=== PATIENT | female | born 1985 | race Caucasian/White ===

== ENCOUNTER 2016-11-24 01:50 | Inpatient (IN) | payer BC ==
[2016-11-24] MEDS ORDERED: Acetaminophen TAB* 325 MG PO PRN (11:12)
[2016-11-24] MEDS ORDERED: OXYTOCIN* 10 UNITS/ML 1 ML VIAL IM ONE (11:12)
[2016-11-24] MEDS ORDERED: Dibucaine 1% 28.35 GM TUBE PR PRN (11:12)
[2016-11-24] MEDS ORDERED: Witch Hazel PAD* JAR TOPICAL PRN (11:12)
[2016-11-24] MEDS: Ibuprofen TAB* 600 MG PO PRN ×2 (12:07→19:36)
--- NOTE | 2016-11-24 12:37 | PTEDU ---
Patient Name: SHAWANDA SCHMID SHAWANDA SCHMID selected video: Follow Me Mum: [facility] to view on 017 at 12:36:20 PM [id number]
[2016-11-24] MEDS: Docusate CAP* 100 MG PO SCH ×2 (14:30→19:36)
--- NOTE | 2016-11-24 17:26 | PTEDU ---
Patient Name: SHAWANDA SCHMID SHAWANDA SCHMID selected video: Follow Me Mum: [facility] to view on 017 at 5:25:37 PM [id number]
--- NOTE | 2016-11-24 17:46 | PTEDU ---
Patient Name: SHAWANDA SCHMID ALTAGRACIASIMONASHAWANDA selected video: BBOB: Nurturing Your Gorgeous \T\Growing Baby by to [facility] on 11/24/2016 at 5:45:30 PM from [id number]
[2016-11-25] MEDS: Docusate CAP* 100 MG PO SCH ×3 (08:29→21:27)
[2016-11-25] MEDS: Ibuprofen TAB* 600 MG PO PRN ×3 (08:29→21:25)
[2016-11-25 08:51] LABS: Hematocrit 32 % (35-47); Hemoglobin 10.7 g/dl (12.0-16.0); Mean Corpuscular HGB Conc 34 g/dl (31-36); Mean Corpuscular Hemoglobin 30 pg (27-31); Mean Corpuscular Volume 89 fL (80-97); Mean Platelet Volume 10 um3 (7.4-10.4); Red Cell Distribution Width 13 % (10.5-15); White Blood Count 15.5 10^3/ul (3.5-10.8)
[2016-11-25] MEDS ORDERED: Tetan/Diph/Pertus SYR(Tdap)* 0.5 ML SYR(BOOSTRIX) use SYR IM ONE (09:00)
[2016-11-25] MEDS ORDERED: Influenza VAC *QUAD* 2017-18* 0.5 ML SYRINGE IM ONE (09:00)
[2016-11-25] MEDS: Ferrous Gluconate TAB* 324 MG TAB PO SCH (09:00)
[2016-11-26] MEDS: Ferrous Gluconate TAB* 324 MG TAB PO SCH (00:55)
[2016-11-26] MEDS: Ibuprofen TAB* 600 MG PO PRN (05:30)
[2016-11-26 08:16] VITALS: BP 145/90
[2016-11-26] MEDS: Docusate CAP* 100 MG PO SCH (09:03)
== END 2016-11-26 12:47 | disposition home or self-care (01) | DRG 560 ==
LOC: MCHOBOUT 01:50 → MCHOB 02:20
PROVIDERS: ADMIT Midwife; ATTEND Midwife
PROC: 10E0XZZ Delivery of Products of Conception, External Approach (ICD-10-PCS; principal; 2016-11-24)
PROC: 10907ZC Drainage of Amniotic Fluid, Therapeutic from Products of Conception, Via Natural or Artificial Opening (ICD-10-PCS; 2016-11-24)
PROC: 4A1HXCZ Monitoring of Products of Conception, Cardiac Rate, External Approach (ICD-10-PCS; 2016-11-24)
PROC: 0KQM0ZZ Repair Perineum Muscle, Open Approach (ICD-10-PCS; 2016-11-24)
DX: O66.0 Obstructed labor due to shoulder dystocia (principal); O77.0 Labor and delivery complicated by meconium in amniotic fluid; O70.1 Second degree perineal laceration during delivery; O69.3XX0 Labor and delivery complicated by short cord, not applicable or unspecified; Z3A.39 39 weeks gestation of pregnancy; Z37.0 Single live birth; Z85.820 Personal history of malignant melanoma of skin
CPT/HCPCS: 36415; 85025; A9270-GY; J2590

== ENCOUNTER 2018-12-15 05:41 | Inpatient (IN) | payer BC ==
--- NOTE | 2018-12-15 06:48 | HP ---
General Information - Reason for Visit Labor - General Information Maternal Age: 33 Grav: 2 Para: 1 SAB: 0 IEA: 0 Estimated Due Date: 12/21/18 Determined By: Early Ultrasound Maternal Blood Type and Rh: O Positive - Results this Serology/RPR Result: Non-Reactive Rubella Result: Immune HBsAg Result: Negative HIV Result: Negative GBS Culture Result: Negative Past Medical History Delivery History: Hx Complicated Vaginal Delivery - 11/24/16 SVB with shoulder dystocia resolved with Emily, 3rd degree laceration Pertinent Past Medical History: See Records Past Medical History Comment: Melanoma hx urinary incontinence Pertinent Past Surgical History: See Records - Bunionectomies 2011; Melanoma removal 2012; wisdom teeth 2013; benign mole removals Family History Comment: HTN PCOS Skin cancer COPD pancreatic cancer - Antepartal Records Antepartal Records: Reviewed, Uncomplicated Review of Systems Constitutional: Uncomfortable CV Complaint: No Respiratory: Shortness of Breath: No Genitourinary: Bleeding, Leaking Fluid Musculoskeletal: Contractions Exam Allergies/Adverse Reactions: Allergies No Known Allergies Allergy (Verified 12/15/18 06:29) - Measurements Height: 5 ft 4 in Weight: 133 lb Weight in lbs: 133.682539 Body Mass Index (BMI): 22.8 Pre- Weight: 114 lb 15.996 oz Weight Gained This : 18.000 lbs and 0.004 ozs - Abdominal Exam Abdomen Exam: Non-Tender Targeted Exam Findings Cervical Exam: 9cm Effacement: 100% Station: +1 Presenting Part: Vertex Membrane Status: Questionable SROM Bleeding/Discharge: Bloody Show EFM Findings - External Monitor Findings Baseline Heart Rate: 135 External Monitor Findings: Accelerations Present, No Pattern of Variable or Late Decelerations, Variability Moderate Contractions: Regular, Strong, 45-90 Seconds Contraction Frequency: Q2 Assessment/Plan - Assessment IUP in active labor @ 39+1, possible SROM with small amount of leaking fluid, blood tinged. No evidence metabolic acidemia. - Plan Plan: Admit - Anticipate Vaginal Delivery Plan Comment: Precipitous delivery, urge to push at arrival to patient room. - Date/Time of Admission Date of Admission: 12/15/18 Time of Admission: 05:50
[2018-12-15] MEDS ORDERED: Glycerin ADULT SUPP PR PRN (07:03)
[2018-12-15] MEDS ORDERED: Ibuprofen TAB* 600 MG PO PRN (07:03)
[2018-12-15] MEDS ORDERED: Dibucaine 1% 28.35 GM TUBE PR PRN (07:03)
[2018-12-15] MEDS ORDERED: Acetaminophen TAB* 325 MG PO PRN (07:03)
[2018-12-15] MEDS ORDERED: OXYTOCIN* 10 UNITS/ML 1 ML VIAL IM ONE (07:03)
[2018-12-15] MEDS ORDERED: Witch Hazel PAD* JAR TOPICAL PRN (07:03)
--- NOTE | 2018-12-15 07:06 | PROCNOTE ---
[facility] OB: Delivery Note - Delivery A Date of : 12/15/18 Time of : 06:02 Sex: Female Score 1 Minute: 8 Score 5 Minutes: 9 Gestational Age in Weeks and Days at Delivery: 39 Weeks and 1 Days Delivery Method: Spontaneous Vaginal Labor: Spontaneous Did Patient attempt ?: N/A, No Previous Amniotic Fluid: Clear Estimated Blood Loss: 200 Anesthesia/Analgesia: None Delivered By: Keke Callahan - Nursery Level of Nursery: Regular/Bedside - Perineum Perineal Injury: Abrasion Only - Not Repaired, 1st Degree - Diffuse perineal abrasion, not suturable Perineal Repair: None - Events Delivery Events of Note: Precipitous Delivery - Additional Delivery Notes Additional Delivery Notes: Patient is 33 no now @ 39+1 weeks gestation. She awoke with mild contractions approx 0400 and noticed leaking fluid, clear with pink tinge. Contraction intensity increased quickly and arrived @ L&D with urge to push. Length of labor 2'07", pushed 11 min. Baby born @ 0602 with intact fluid filled membrane over head, shoulders followed with maternal efforts. Delivered to maternal abdomen with spontaneous cry, apgars 8, 9. Cord doubly clamped and cut by FOB once pulsations ceased. Placenta delivered in Stella presentation with gentle cord traction @ 0607. Noted to have intact membranes, 3VC. Fundus firm to massage. Baby at breast and initiating immediately. Both stable.
[2018-12-15] MEDS ORDERED: Lactated Ringers 1000 ML Bag* 1,000 ML IV SCH (08:00)
[2018-12-15] MEDS: Docusate CAP* 100 MG PO SCH ×2 (09:00→14:55)
[2018-12-16] MEDS: Docusate CAP* 100 MG PO SCH (04:29)
[2018-12-16 06:56] LABS: ABS Basophils 0.1 10^3/ul (0-0.2); ABS Lymphocytes 2.2 10^3/ul (1.0-4.8); ABS Monocytes 0.8 10^3/ul (0-0.8); ABS Neutrophils 10.7 10^3/ul (1.5-7.7); Eosinophil % 0.3 %; Hematocrit 36 % (35-47); Hemoglobin 12.1 g/dL (12.0-16.0); Lymphocyte % 15.6 %; Mean Corpuscular HGB Conc 33 g/dL (31-36); Mean Corpuscular Hemoglobin 29 pg (27-31); Mean Corpuscular Volume 86 fL (80-97); Mean Platelet Volume 9.4 fL (7.4-10.4); Nucleated Red Blood Cells % 0.1; Platelet Count 198 10^3/uL (150-450); Red Blood Count 4.23 10^6 /uL (3.70-4.87); Red Cell Distribution Width 14 % (10-15); White Blood Count 13.8 10^3/uL (3.5-10.8)
[2018-12-16] MEDS ORDERED: Ferrous Gluconate TAB* 324 MG TAB PO SCH (09:00)
[2018-12-16] MEDS ORDERED: Measles, Mumps,Rubella VACC* 0.5 ML/VIAL SUBCUT ONE (09:00)
[2018-12-16 12:18] VITALS: BP 124/85
== END 2018-12-16 11:57 | disposition home or self-care (01) | DRG 560 ==
LOC: MCHOBOUT 05:41 → MCHOB 05:47
PROVIDERS: ADMIT Midwife; ATTEND Midwife
PROC: 10E0XZZ Delivery of Products of Conception, External Approach (ICD-10-PCS; principal; 2018-12-15)
DX: O62.3 Precipitate labor (principal); Z37.0 Single live birth; O70.0 First degree perineal laceration during delivery; Z3A.39 39 weeks gestation of pregnancy
CPT/HCPCS: 36415; 85025; A9270-GY

== ENCOUNTER 2018-12-21 10:48 | Emergency (ER) | payer BC ==
[2018-12-21] MEDS ORDERED: NS 0.9% 1000 ML** 1,000 ML IV ONE (11:02)
--- NOTE | 2018-12-21 11:03 | ED ---
Abdominal Pain/Female - HPI Summary HPI Summary: 33 year old female reports to [facility] by EMS with complaints of heavy vaginal bleeding 6 days post-, starting this morning. Patient reports being very stressed yesterday secondary to taking care of her two kids. She woke up to use the restroom this morning; when she stood up she noticed heavy bleeding. She had no complications during , GPA 2.2.0. Patient denies heart palpitations. - History of Current Complaint Stated Complaint: VAGINAL BLEEDING PER EMS Hx Obtained From: Patient Hx Last Menstrual Period: on the nuva ring - does not get periods regularly ( just leaves ring in) ?: No Onset/Duration: Sudden Onset, Lasting Minutes, Still Present Timing: Constant Severity Initially: Moderate Severity Currently: Moderate Location: Groin Radiates: No Aggravating Factor(s): Nothing Alleviating Factor(s): Nothing Associated Signs and Symptoms: Positive: Vaginal Bleeding Allergies/Adverse Reactions: Allergies Allergy/AdvReac Type Severity Reaction Status Date / Time No Known Allergies Allergy Verified 12/15/18 06:29 PMH/Surg Hx/FS Hx/Imm Hx Previously Healthy: Yes Endocrine/Hematology History: Denies: Hx Sickle Cell Disease Cardiovascular History: Denies: Other Cardiovascular Problems/Disorders Respiratory History: Denies: Other Respiratory Problems/Disorders GI History: Denies: Other GI Disorders History: Denies: Other Problems/Disorders Musculoskeletal History: Reports: Hx Arthritis - IN LEFT FOOT WHERE BUNIONECTOMY WAS REMOVED Sensory History: Denies: Hx Contacts or Glasses, Hx Hearing Aid Opthamlomology History: Denies: Hx Contacts or Glasses Neurological History: Denies: Other Neuro Impairments/Disorders - Surgical History Surgery Procedure, Year, and Place: BUNIONECTOMY - [place] [facility] [place]x Anesthesia Reactions: No - NAUSEA Infectious Disease History: Denies: Traveled Outside the [place] in Last 30 Days - Family History Known Family History: Positive: Hypertension, Other - skin cancer, COPD - Social History Alcohol Use: None Alcohol Amount: 1/month Substance Use Type: Reports: None Smoking Status (MU): Never Smoked Tobacco Review of Systems Negative: Fever Negative: Palpitations Positive: other - vaginal bleeding All Other Systems Reviewed And Are Negative: Yes Physical Exam - Summary Physical Exam Summary: VITAL SIGNS: Reviewed and stable. GENERAL: Patient is a well-developed and nourished female who is lying comfortable in the stretcher. Patient is not in any acute respiratory distress. Patient is crying secondary to stress. HEAD AND FACE: Normocephalic and atraumatic. EYES: PERRLA, EOMI x 2, No injected conjunctiva. EARS: Hearing grossly intact. Ear canals and tympanic membranes are WNL. MOUTH: Oropharynx within normal limits. NECK: Supple, trachea is midline, no adenopathy, no JVD. CHEST: Symmetric, no tenderness at palpation. LUNGS: Clear to auscultation bilaterally. No wheezing or crackles. CVS: RRR, S1 and S2 present, no murmurs or gallops appreciated. ABDOMEN: Soft, tenderness in lower abdomen. No signs of distention. Positive bowel sounds. No rebound, no guarding, and no masses palpated. No abdominal bruit or pulsations. EXTREMITIES: FROM in all major joints, no edema, no cyanosis or clubbing. NEURO: Alert and oriented x 3. No acute neurological deficits. Speech is normal. SKIN: Dry and warm. 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 External genitalia: within normal limits. No rashes, lesions or ecchymosis. Speculum exam: vaginal dye with no lesions, masses, or rashes. Positive mild amount of blood. Cervix normal. No CMTs. No adnexal masses. Triage Information Reviewed: Yes Vital Signs Reviewed: Yes Procedures - Sedation Patient Received Moderate/Deep Sedation with Procedure: No Diagnostics - Laboratory Result Diagrams: 12/21/18 11:11 12/21/18 11:11 Lab Statement: Any lab studies that have been ordered have been reviewed, and results considered in the medical decision making process. - Ultrasound Pelvis US Ultrasound Interpretation Completed By: Radiologist Summary of Ultrasound Findings: Pelvis US shows heterogeneous endometrium with small amount of fluid likely representing residual fluid. No definite retained products of conception are noted. An ED physician has reviewed this report. Abdominal Pain Fem Course/Dx - Course Course Of Treatment: 33 y/o female c/o of vaginal bleeding 6 days ago. Blood work without any significant abnormality. Pelvic exam she has some pronounced blood and cervix no active bleeding. Transabdominal ultrasound impression: Heterogeneous endometrium with a small amount of fluid likely representing residual fluid. No definite became pulseless of conception some noted. I discussed my physical exam findings and test results with Dr. Gallegos from [employer] and at this time he recommends for the patient to be discharged home and follow-up with his office or Ms. Callahan the enterprise resource analyst. I discussed all the findings and test results with the patient. Patient was instructed to return to the emergency room immediately if any of the symptoms return worsens. Plan of care was discussed with the patient and understands and agrees. All questions were answered at patient satisfaction. There were no further complaints or concerns. Lung exam before discharge: CTA B/L. Good air exchange. No wheezing or crackles heard. CVS: S1 and S2 present. No murmurs appreciated. Patient is alert and oriented x 3. Patient is hemodynamically stable. Patient will be discharged home with follow up PCP in the next 2-3 days - Diagnoses Provider Diagnoses: hemorrhage of vagina - Provider Notifications Discussed Care Of Patient With: Gregory Lynn Time Discussed With Above Provider: 12:38 Instructed by Provider To: Other - I talked to Dr. Lynn at 12:38. He recommended discharging the patient home. She should follow up with him or Dr. Callahan in 2-3 days. Discharge ED - Sign-Out/Discharge Documenting (check all that apply): Patient Departure - discharge - Discharge Plan Condition: Stable Disposition: HOME Patient Education Materials: Bleeding (ED) Referrals: Salome Ho DO [Primary Care Provider] - Gregory Lynn MD [Medical Doctor] - Keke Callahan CNM [Certified Nurse Solution Manager] - Additional Instructions: Follow up with Dr. Lynn or Dr. Callahan in 2-3 days. Return to the ED if you experience new or worsened symptoms. - Billing Disposition and Condition Condition: STABLE Disposition: Home - Attestation Statements Document Initiated by Nileibe: Yes Documenting Scribe: Cuba Mccarty Provider For Whom Payton is Documenting (Include Credential): Steve Pro MD Scribe Attestation: Cuba Jameson, nileibed for Steve Pro MD on 12/21/18 at 7599. Scribe Documentation Reviewed: Yes Provider Attestation: The documentation as recorded by the Cuba wallis accurately reflects the service I personally performed and the decisions made by me, Steve Pro MD Status of Scribe Document: Viewed
[2018-12-21 11:25] LABS: ABS Basophils 0.1 10^3/ul (0-0.2); ABS Eosinophils 0.1 10^3/ul (0-0.6); ABS Lymphocytes 1.6 10^3/ul (1.0-4.8); ABS Monocytes 0.5 10^3/ul (0-0.8); ABS Neutrophils 6.4 10^3/ul (1.5-7.7); Eosinophil % 1.2 %; Hematocrit 40 % (35-47); Hemoglobin 13.4 g/dL (12.0-16.0); Lymphocyte % 18.6 %; Mean Corpuscular HGB Conc 34 g/dL (31-36); Mean Corpuscular Hemoglobin 29 pg (27-31); Mean Corpuscular Volume 87 fL (80-97); Mean Platelet Volume 8.3 fL (7.4-10.4); Platelet Count 303 10^3/uL (150-450); Red Cell Distribution Width 14 % (10-15); White Blood Count 8.7 10^3/uL (3.5-10.8)
[2018-12-21 11:55] LABS: Albumin 3.8 g/dL (3.2-5.2); Albumin/Globulin Ratio 1.4 (1-3); BUN/Creatinine Ratio 31.3 (8-20); C Reactive Protein 5.82 mg/L (<8.01); Calcium 9.1 mg/dL (8.6-10.3); EGFR African American 130.1 (>60); EGFR Non-African American 107.5 (>60); Globulin 2.8 g/dL (2-4); Potassium 3.9 mmol/L (3.5-5.0); Total Bilirubin 0.4 mg/dL (0.2-1.0); Total Protein 6.6 g/dL (6.4-8.9)
[2018-12-21] MEDS ORDERED: Lactated Ringers 1000 ML Bag* 1,000 ML IV SCH (12:00)
[2018-12-21 13:16] VITALS: BP 140/90
== END 2018-12-21 13:00 | disposition home or self-care (01) ==
LOC: ED 10:48
DX: O72.1 Other immediate postpartum hemorrhage (principal)
CPT/HCPCS: 36415; 76856; 80053; 83690; 85025; 86140; 86850; 86900; 86901; 96360; 99284

== ENCOUNTER 2018-12-21 15:00 | Observation (INO) | payer BC ==
[2018-12-21 15:35] LABS: ABS Basophils 0.1 10^3/ul (0-0.2); ABS Eosinophils 0.1 10^3/ul (0-0.6); ABS Monocytes 0.5 10^3/ul (0-0.8); ABS Neutrophils 7.3 10^3/ul (1.5-7.7); Eosinophil % 0.6 %; Hematocrit 40 % (35-47); Hemoglobin 13.5 g/dL (12.0-16.0); Lymphocyte % 20.2 %; Mean Corpuscular HGB Conc 34 g/dL (31-36); Mean Corpuscular Hemoglobin 29 pg (27-31); Mean Corpuscular Volume 86 fL (80-97); Mean Platelet Volume 8.1 fL (7.4-10.4); Platelet Count 303 10^3/uL (150-450); Red Blood Count 4.62 10^6 /uL (3.70-4.87); Red Cell Distribution Width 14 % (10-15)
--- NOTE | 2018-12-21 15:39 | ED ---
GI/ HPI - HPI Summary HPI Summary: 33 year old female returns to the ED with complaints of intense bleeding from her vagina. The bleeding worsened from this morning, when she presented to [facility] and was discharged home. 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 Patient reports no pain. She is 6 days post-. Patient reports being very stressed yesterday secondary to taking care of her two kids. She woke up to use the restroom this morning; when she stood up she noticed heavy bleeding. She had no complications during , GPA 2.2.0 patient denies heart palpitations. - History of Current Complaint Chief Complaint: EDVaginalBleeding Stated Complaint: BLEEDING PER PT Hx Obtained From: Patient Hx Last Menstrual Period: on the nuva ring - does not get periods regularly ( just leaves ring in) Onset/Duration: Started Hours Ago, Still Present Timing: Constant Severity: Severe Current Severity: Severe Vaginal Bleeding Description: Dark Red Pain Intensity: 0 Additional Signs & Symptoms: Positive: Vaginal Bleeding Aggravating Factor(s): Nothing Alleviating Factor(s): Nothing - Allergy/Home Medications Allergies/Adverse Reactions: Allergies Allergy/AdvReac Type Severity Reaction Status Date / Time No Known Allergies Allergy Verified 12/15/18 06:29 PMH/Surg Hx/FS Hx/Imm Hx Previously Healthy: Yes Endocrine/Hematology History: Denies: Hx Sickle Cell Disease Cardiovascular History: Denies: Other Cardiovascular Problems/Disorders Respiratory History: Denies: Other Respiratory Problems/Disorders GI History: Denies: Other GI Disorders History: Denies: Other Problems/Disorders Musculoskeletal History: Reports: Hx Arthritis - IN LEFT FOOT WHERE BUNIONECTOMY WAS REMOVED Sensory History: Denies: Hx Contacts or Glasses, Hx Hearing Aid Opthamlomology History: Denies: Hx Contacts or Glasses Neurological History: Denies: Other Neuro Impairments/Disorders - Surgical History Surgery Procedure, Year, and Place: BUNIONECTOMY - 2011 [facility] [place] Hx Anesthesia Reactions: No - NAUSEA Infectious Disease History: No Infectious Disease History: Denies: Traveled Outside the [place] in Last 30 Days - Family History Known Family History: Positive: Hypertension, Other - skin cancer, COPD - Social History Alcohol Use: None Alcohol Amount: 1/month Substance Use Type: Reports: None Smoking Status (MU): Never Smoked Tobacco Review of Systems Negative: Fever Positive: other - vaginal bleeding All Other Systems Reviewed And Are Negative: Yes Physical Exam - Summary Physical Exam Summary: VITAL SIGNS: Reviewed and stable. GENERAL: Patient is a well-developed and nourished female who is lying comfortable in the stretcher. Patient is not in any acute respiratory distress.Patient is crying secondary to stress. HEAD AND FACE: Normocephalic and atraumatic. EYES: PERRLA, EOMI x 2, No injected conjunctiva. EARS: Hearing grossly intact. Ear canals and tympanic membranes are WNL. MOUTH: Oropharynx within normal limits. NECK: Supple, trachea is midline, no adenopathy, no JVD. CHEST: Symmetric, no tenderness at palpation. LUNGS: Clear to auscultation bilaterally. No wheezing or crackles. CVS: RRR, S1 and S2 present, no murmurs or gallops appreciated. ABDOMEN: Soft, tenderness in lower abdomen. No signs of distention. Positive bowel sounds. No rebound, no guarding, and no masses palpated. No abdominal bruit or pulsations. EXTREMITIES: FROM in all major joints, no edema, no cyanosis or clubbing. NEURO: Alert and oriented x 3. No acute neurological deficits. Speech is normal. SKIN: Dry and warm. Triage Information Reviewed: Yes Vital Signs On Initial Exam: Initial Vitals Temp Pulse Resp BP Pulse Ox 99.7 F 120 20 161/121 94 12/21/18 15:01 12/21/18 15:01 12/21/18 15:01 12/21/18 15:01 12/21/18 15:01 Vital Signs Reviewed: Yes Procedures - Sedation Patient Received Moderate/Deep Sedation with Procedure: No Diagnostics - Vital Signs Vital Signs Temp Pulse Resp BP Pulse Ox 12/21/18 15:01 99.7 F 120 20 161/121 94 - Laboratory Result Diagrams: 12/22/18 05:12 12/21/18 15:26 Lab Statement: Any lab studies that have been ordered have been reviewed, and results considered in the medical decision making process. GIGU Course/Dx - Course Assessment/Plan: Patient is a 33-year-old female who presents to the ED with a chief complaint of vaginal bleeding. Dr. Martinez came and assessed the patient. He evacuated some blood clots and the cervix. He requested to give Pitocin. After these medications the symptoms improved. He requested to observe the patient and discharged the patient home. However patient has a near syncope episode and hypotensive. Dr. Martinez reassess patient and admitted the patient to his services. - Diagnoses Provider Diagnoses: Vaginal bleeding Discharge ED - Sign-Out/Discharge Documenting (check all that apply): Patient Departure - discharge - Discharge Plan Condition: Stable Disposition: ADMITTED TO [facility] - Billing Disposition and Condition Condition: STABLE Disposition: Admitted to [facility] - Attestation Statements Document Initiated by Scribe: Yes Documenting Scribe: Cuba Mccarty Provider For Whom Payton is Documenting (Include Credential): Steve Pro MD. Scribe Attestation: Cuba Jameson, scribed for Steve Pro MD. on 12/22/18 at 2117. Scribe Documentation Reviewed: Yes Provider Attestation: The documentation as recorded by the scribe, Cuba Mccarty accurately reflects the service I personally performed and the decisions made by , Steve Pro MD. Status of Scribe Document: Viewed
[2018-12-21] MEDS ORDERED: Oxytocin in LR* 20 UNITS/1,000 ML BAG IVPB SCH (16:00)
[2018-12-21 16:13] LABS: BUN/Creatinine Ratio 29.5 (8-20); Calcium 8.9 mg/dL (8.6-10.3); EGFR African American 137.5 (>60); EGFR Non-African American 113.7 (>60); Potassium 3.8 mmol/L (3.5-5.0)
[2018-12-21] MEDS ORDERED: NS 0.9% 1000 ML** 1,000 ML IV ONE (19:02)
[2018-12-21] MEDS ORDERED: Ibuprofen TAB* 600 MG PO PRN (19:31)
[2018-12-21] MEDS ORDERED: Acetaminophen TAB* 325 MG PO PRN (19:32)
--- NOTE | 2018-12-21 19:49 | CONS ---
CC: [facility] CONSULTATION REPORT: DATE OF CONSULT: 12/21/18 TIME OF CONSULTATION: 4 p.m. HISTORY OF PRESENT ILLNESS: Ms. Morales is a 33-year-old 2, para 2-0-0-2 , who is post spontaneous vaginal delivery without complications on 12/15/18. She was discharged home after her delivery without any incidents. Today, she called her punch machine operator with complaints of vaginal bleeding and was seen in the emergency room on 12/21/18 in the morning at around 10 to 11 a.m. She underwent an evaluation by the emergency room physician. She had stable vital signs, complete blood cell count, complete metabolic panel, which were within normal limits with a hemoglobin of 13.4. She underwent a pelvic exam and was not actively bleeding; therefore, she was discharged home. Three hours after discharge the patient arrived at home, she called her punch machine operator again with similar complaints and she was asked to go to the office. The patient came to the emergency room and I was called in consultation to see the patient. In the emergency room, the patient stated that once she arrived at home she started and she passed a large clot vaginally. OBSTETRICAL HISTORY: 1 full term spontaneous vaginal delivery for her first without complications and she is post spontaneous vaginal delivery on 12/15/18. GYNECOLOGIC HISTORY: Unremarkable. PAST MEDICAL HISTORY: None. PAST SURGICAL HISTORY: None. MEDICATIONS: She is currently only taking vitamins. ALLERGIES: She has no known drug allergies. SOCIAL HISTORY: She denied any cigarette, alcohol or drug use. REVIEW OF SYMPTOMS: The patient denied any fevers, chills, or constitutional signs or symptoms. She denied chest pain, shortness of breath. No nausea or vomiting. No abdominal pain. No urinary signs or symptoms other than vaginal bleeding as noted in the history of present illness. PHYSICAL EXAM: Her vital signs in the emergency room when I arrived, her blood pressure was 148/96, heart rate of 83, temperature had been 99.7, respiratory rate of 20 with a pulse ox of 100% on room air. She was alert, awake, in no apparent distress, in the emergency room bed. On physical exam, she had lungs that were clear to auscultation bilaterally. Her heart showed a regular rate and rhythm with no abnormal heart sounds. Her abdomen was soft, nondistended, nontender. Her uterus was firm below the umbilicus. I did a speculum exam and the speculum exam revealed about 250 cc of clot that was sitting in the vagina. This was removed and she was noted to have a clot at the external cervical os , which I grasped with a sterile ring forceps and I was able to remove the clot from the cervix. I performed a bimanual pelvic exam. The cervix was noted to be about 2 cm dilated. There was no clot. The uterus was firm, nontender, anteverted and it was about 6 cm below the umbilicus consistent with normal post delivery uterine involution. LABORATORY DATA: She had a repeat complete blood cell count and a repeat comprehensive metabolic panel, both were within normal limits and her hemoglobin was actually 13.5 similar to her hemoglobin on presentation at 11 a.m. EMERGENCY DEPARTMENT COURSE: The patient was observed over 2 hours in the emergency room. She received 1 L of IV crystalloid fluid with 20 units of Pitocin and she started . When I returned to the emergency room, I reexamined the patient. Her abdomen was soft and nontender. Uterus that was soft, firm about 6 cm below the umbilicus and external vaginal exam revealed no active bleeding. PLAN: I had a conversation with the patient and family regarding her bleeding and most likely diagnosis. We also discussed bleeding precautions and when to call if she feels she had any complications. The patient decided to go home. I had offered observation; however, she declined. She was therefore being discharged home. She is to follow with her doctors at [facility] this coming Monday. She was given instructions for abnormal bleeding and followup. DISCHARGE DIAGNOSIS: Lochial block of the cervix with passage of blood clots, stable hemoglobin. The patient's presentation is not consistent with an episode of hemorrhage. [id number]/[facility] #: [id number] [facility] CENTERKush
[2018-12-21] MEDS ORDERED: Lactated Ringers 1000 ML Bag* 1,000 ML IV SCH (20:00)
[2018-12-21] MEDS ORDERED: Misoprostol TAB* 200 MCG PR ONE (20:13)
[2018-12-21] MEDS ORDERED: ceFOXitin 2 GM IVPREMIX* 2 GM/50 ML BAG IVPB ONE (20:45)
[2018-12-21 20:52] LABS: Hematocrit 30 % (35-47); Hemoglobin 10.3 g/dL (12.0-16.0)
--- NOTE | 2018-12-21 21:15 | HP ---
History of Present Illness - History of Present Illness Reason for Visit: vaginal bleeding History of Present Illness: 33 y/o s/p uncomplicated on 12/15/2018 presents today with bleeding that increased starting this AM. Since delivery her bleeding was minimal up until today. - Past Medical History Grav: 2 Para: 2 - Past Surgical History Past Surgical History: None - Past Family History Family History: None - Past Social History Smoke: No Drugs: None Lives: With Family Domestic Violence: Negative Review of Systems - Review of Systems Constitutional: Positive: Weakness Cardiovascular: Positive: Light Headedness - Medications/Allergies Allergies/Adverse Reactions: Allergies Allergy/AdvReac Type Severity Reaction Status Date / Time No Known Allergies Allergy Verified 12/15/18 06:29 Medications: Current Medications Acetaminophen (Tylenol Tab*) 650 mg PO Q6H PRN PRN Reason: PAIN-MILD/TEMP >/= 100.4 Oxytocin (Pitocin In Lr*) 20 units in 1,000 mls @ 0 mls/hr IVPB .PER PARAMETERS ANNE MARIE; Protocol Last Admin: 12/21/18 16:09 Dose: 1,000 mls/hr Lactated Ringer's (Lactated Ringers 1000 Ml Bag*) 1,000 mls @ 125 mls/hr IV .INITIAL RATE [facility] Cefoxitin Sodium (Mefoxin 2gm Ivpremix*) 2 gm in 50 mls @ 100 mls/hr IVPB ED ONCE ONE Stop: 12/21/18 21:14 Ibuprofen (Motrin Tab*) 600 mg PO Q6H PRN PRN Reason: PAIN - MILD Exam - Exam Vital Signs: Vital Signs (72 hours) 12/21/18 12/21/18 12/21/18 15:01 15:38 15:39 Temperature 99.7 F Pulse Rate 120 101 101 Respiratory 20 Rate Blood Pressure 161/121 138/99 (mmHg) O2 Sat by Pulse 94 98 99 Oximetry 12/21/18 12/21/18 12/21/18 16:00 16:09 16:17 Temperature Pulse Rate 94 91 101 Respiratory Rate Blood Pressure 155/96 158/95 (mmHg) O2 Sat by Pulse 99 97 97 Oximetry 12/21/18 12/21/18 12/21/18 16:32 16:47 17:00 Temperature Pulse Rate 83 97 94 Respiratory Rate Blood Pressure 148/96 158/99 (mmHg) O2 Sat by Pulse 99 98 99 Oximetry 12/21/18 12/21/18 12/21/18 17:02 17:17 17:32 Temperature Pulse Rate 91 90 93 Respiratory Rate Blood Pressure 147/94 145/102 150/89 (mmHg) O2 Sat by Pulse 98 98 97 Oximetry 12/21/18 12/21/18 12/21/18 18:05 18:06 18:57 Temperature Pulse Rate 118 115 81 Respiratory Rate Blood Pressure 111/85 112/85 (mmHg) O2 Sat by Pulse 97 97 98 Oximetry 12/21/18 12/21/18 12/21/18 19:00 19:02 19:17 Temperature Pulse Rate 85 89 86 Respiratory Rate Blood Pressure 128/90 141/90 (mmHg) O2 Sat by Pulse 99 99 100 Oximetry 12/21/18 12/21/18 12/21/18 19:33 19:48 19:49 Temperature Pulse Rate 94 97 95 Respiratory Rate Blood Pressure 141/87 135/87 142/93 (mmHg) O2 Sat by Pulse 100 99 99 Oximetry 12/21/18 12/21/18 12/21/18 20:00 20:03 20:06 Temperature Pulse Rate 107 106 113 Respiratory Rate Blood Pressure 131/92 157/106 (mmHg) O2 Sat by Pulse 98 98 98 Oximetry 12/21/18 12/21/18 12/21/18 20:18 20:25 20:35 Temperature Pulse Rate 116 113 122 Respiratory 23 Rate Blood Pressure 160/100 162/103 165/100 (mmHg) O2 Sat by Pulse 99 99 99 Oximetry 12/21/18 20:49 Temperature Pulse Rate 120 Respiratory 20 Rate Blood Pressure 140/100 (mmHg) O2 Sat by Pulse 97 Oximetry General: Alert, Oriented x3, Cooperative HEENT: Atraumatic Lungs: Clear to auscultation, Normal air movement Cardiovascular: Other - Slight tachycardia, regular rhythm Abdomen: Soft, No tenderness, No hepatospenomegaly, No masses, Other - Intermittent heavy vaginal bleeding, fundus firm below the umbilicus Extremities: No clubbing, No cyanosis, No edema, Normal pulses Skin: No rashes Neurological: Normal speech Psych/Mental Status: Mental status NL Assessment/Plan - Assessment/Plan Assessment: 33 y/o with increased vaginal bleeding s/p on 12/15/2018. Bleeding improved after evacuation and pitocin on initial presentation. Called by nursing shortly thereafter to re-assess as pt began bleeding again. Approximately 500cc of blood evacuated and 600mcg Misoprostol placed intravaginally. Hct changed from 40 to 30 over course of hospitalization today. Suspect small retained POC's, at this point given continued bleeding, recommend proceed to OR for Suction dilation and currettage. Cefoxitin 2g now for infection ppx given multiple exams Pt consented at bedside Anesthesia notified OR notified. T&S up to date Plan: Proceed to OR for Suction D&C OR Staff and Anesthesia Aware Pt consented Exam to be performed under USN guidance with Dr. Lynn
[2018-12-21] MEDS ORDERED: fentaNYL* 50 MCG/ML 2 ML VIAL (100 MCG VIAL) ONE (21:39)
[2018-12-21] MEDS ORDERED: Propofol* 10 MG/ML 20 ML BTL ONE (21:39)
[2018-12-21] MEDS ORDERED: Ondansetron INJ* 2 MG/ML VIAL ONE (21:39)
[2018-12-21] MEDS ORDERED: Lidocaine 2% PF * 5 ML VIAL ONE (21:39)
[2018-12-21] MEDS ORDERED: Succinylcholine* 20 MG/ML 10 ML VIAL ONE (21:39)
[2018-12-21] MEDS ORDERED: Phenylephrine 40 MCG/ML SYRINGE ONE (21:40)
[2018-12-21] MEDS ORDERED: Famotidine IV* 10 MG/ML 2 ML (20 mg) ONE (21:46)
[2018-12-21] MEDS ORDERED: KETAMINE HCL* 50 MG/ML 10 ML VIAL ONE (21:51)
[2018-12-21] MEDS ORDERED: ceFOXitin 2 GM IVPREMIX* 2 GM/50 ML BAG ONE (21:53)
[2018-12-21] MEDS ORDERED: Silver Nitrate/Potassium Nitr* 1 EA STICK ONE (22:33)
[2018-12-21] MEDS ORDERED: DiMENhydriNATE IV* 50 MG/ML VIAL IV PUSH PRN (22:51)
[2018-12-21] MEDS ORDERED: Ondansetron INJ* 2 MG/ML VIAL IV PRN (22:51)
[2018-12-21] MEDS ORDERED: Naloxone* 0.4 MG/ML 1 ML VIAL IV PRN (22:51)
[2018-12-21] MEDS ORDERED: fentaNYL* 50 MCG/ML 2 ML VIAL (100 MCG VIAL) IV PRN (22:51)
[2018-12-21 23:21] LABS: Hematocrit 23 % (35-47); Hemoglobin 7.8 g/dL (12.0-16.0)
[2018-12-22 05:40] LABS: ABS Monocytes 0.2 10^3/ul (0-0.8); ABS Neutrophils 9.9 10^3/ul (1.5-7.7); Hematocrit 22 % (35-47); Hemoglobin 7.5 g/dL (12.0-16.0); Lymphocyte % 8.9 %; Mean Corpuscular HGB Conc 34 g/dL (31-36); Mean Corpuscular Hemoglobin 29 pg (27-31); Mean Corpuscular Volume 87 fL (80-97); Mean Platelet Volume 8.4 fL (7.4-10.4); Platelet Count 252 10^3/uL (150-450); Red Blood Count 2.54 10^6 /uL (3.70-4.87); Red Cell Distribution Width 14 % (10-15)
[2018-12-22 12:10] VITALS: BP 131/81
--- NOTE | 2018-12-22 12:49 | PN ---
Progress Note - Progress Note Date of Service: 12/22/18 SOAP: Subjective: [Pt is POD#1 s/p suction D&C for delayed post hemorrhage. Doing well this AM. Reports feeling much better. Bleeding has been scant to none overnight. Pt reports feeling slightly dizzy overnight, but much better this AM and no longer dizzy, lightheaded. Denies palpitations, cp, sob. Has had a good breakfast and tolerated well. Reports voiding spontaneously with good UOP. Has been up and ambulated in hallway and reports feeling tired, but otherwise asymptomatic.] Objective: [T98.5 RR 19 Pulse 117 BP 131/80 O2% 98] Gen: nad, aaox3 CV: slight tachycardia on palpation, regular rhythm Pulm: CTABL Abd: soft, nd, nttp, no rebound, no guarding, fundus firm well below umbilicus : bleeding scant to none on pad this AM Ext: warm, nttp, negative jesusita's Psych: euthymic Assessment: [POD#1 s/p Suction D&C for delayed PPH - AVSS, afebrile, hemodynamically stable - Anemia noted Hct 40 on admission to 22. Stable from 23 to 22 overnight. Bleeding has resolved. Pt does have mild tachycardia, but otherwise is asymptomatic. Offered transfusion and discussed risks versus benefits, pt would like to avoid transfusion at this time. Agrees to start Fe+Vitamin C and Colace BID on discharge. - Pt received Cefoxitin 2 grams in OR at time of suctions D&C this was post hemorrhage. Would like to avoid additional antibiotics. Afebrile, no indication for further Abx ppx at this time. - Anemia, bleeding, infection and pain precautions carefully reviewed. Plan: [- Stable for discharge home - F/U in office in 1 week for Post op Check Lc Mar, OBGYN]]
--- NOTE | 2018-12-23 00:19 | OP ---
OPERATIVE REPORT: DATE OF OPERATION: 12/21/18 DATE OF : 87 SURGEON: Nolberto Mar DO LOCAL SALES ASSOCIATE: Gregory Lynn MD ANESTHESIA: General endotracheal. PRE-OP DIAGNOSIS: Delayed hemorrhage. POST-OP DIAGNOSIS: Delayed hemorrhage. OPERATIVE PROCEDURE: Suction dilation and curettage under ultrasound guidance. IV FLUIDS RECEIVED FOR THE CASE: 800 mL. ESTIMATED BLOOD LOSS: 100 mL. URINE OUTPUT: none SPECIMEN: suspected retained products of conception. COMPLICATIONS: None. FINDINGS: A 12 week sized anteverted uterus with dilated cervix and thickened heterogenous material, moderate amount evacuated consistent with retained products of conception. CONDITION: Stable to recovery room. INDICATIONS: The risks, benefits, alternatives, and indications for the procedure were discussed with the patient prior to proceeding to the operating room. She voiced understanding of the procedure and signed written consent. DESCRIPTION OF PROCEDURE: The patient was taken to the operating room where general anesthesia was administered without difficulty. She was placed in the dorsal lithotomy position with [place] stirrups. An exam under anesthesia revealed a dilated cervix to 2 to 3 cm and an anteverted uterus approximately 12 weeks sized. The patient was prepped and draped in a normal sterile fashion. A Graves speculum was inserted into the vagina. A ring forceps was used to grasp the anterior lip of the cervix. The uterus was carefully sounded to 12 cm under ultrasound guidance. A size 12 curved suction curette was advanced to the fundus under ultrasound guidance. The suction was then started. The retained products of conception were evacuated with the curette rotating on the outward movement. This was repeated x3, all under ultrasound guidance. Moderate retained products of conception appeared to evacuate. A gentle sharp curettage with a large sized curette was then performed. The suction curette was then introduced for 1 final pass. The sponge stick was removed from the cervix. The uterus was noted to be firm and well contracted. The endometrial stripe was noticed to be thin via ultrasound and good hemostasis was noted. The speculum was removed from the vagina. The patient tolerated the procedure well. The instrument and sponge counts were correct x2. The patient was awakened from general anesthesia and taken to the recovery room in a stable condition. The patient will be monitored in the hospital overnight and anticipated to be discharged on postoperative day #1. DO RAINER Britton
--- NOTE | 2018-12-23 13:54 | DS ---
DISCHARGE SUMMARY Subjective: Pt is POD#1 s/p suction D&C for delayed post hemorrhage. Post operative course complicated by anemia. Patient declined transfusion. Was asymptomatic other than mild tachycardia. Objective: T98.5 RR 19 Pulse 117 BP 131/80 O2% 98 Gen: nad, aaox3 CV: slight tachycardia on palpation, regular rhythm Pulm: CTABL Abd: soft, nd, nttp, no rebound, no guarding, fundus firm well below umbilicus : bleeding scant to none Ext: warm, nttp, negative jesusita's Psych: euthymic Assessment: POD#1 s/p Suction D&C for delayed PPH, doing well - AVSS, afebrile, hemodynamically stable - Anemia noted Hct 40 on admission to 22. Stable from 23 to 22 overnight. Bleeding has resolved. Pt does have mild tachycardia, but otherwise is asymptomatic. Offered transfusion and discussed risks versus benefits, pt would like to avoid transfusion at this time. Agrees to start Fe+Vitamin C and Colace BID on discharge. - Pt received Cefoxitin 2 grams in OR at time of suctions D&C this was post hemorrhage. Would like to avoid additional antibiotics. Afebrile, no indication for further Abx ppx at this time. - Anemia, bleeding, infection and pain precautions carefully reviewed. Plan: - Stable for discharge home - F/U in office within one week Disposition - discharged to home with no indication for any additional services Prognosis - good DO RAINER Britton, PGY4
== END 2018-12-22 15:25 | disposition home or self-care (01) ==
LOC: ED 15:00 → SSU 20:18
PROVIDERS: ADMIT Obstetrics & Gynecology; ATTEND Obstetrics & Gynecology
DX: O72.2 Delayed and secondary postpartum hemorrhage (principal); R53.1 Weakness; R42 Dizziness and giddiness
CPT/HCPCS: 36415; 80048; 85014; 85018; 85025; 88305; 96365; 96366; 99284; A9270-GY; G0378; J0330; J0694; J2405; J2704; J3010